=== PATIENT | male | born 1965 | race Caucasian/White ===

== ENCOUNTER 2016-10-13 23:06 | Observation (INO) | payer OTHER ==
[2016-10-13 23:31] LABS: ABSOLUTE BASOPHILS # (AUTO) 0.1 10^3/uL (0.0-0.2); ABSOLUTE EOSINOPHILS # (AUTO) 0.5 10^3/uL (0.0-0.6); ABSOLUTE LYMPHOCYTES (AUTO) 2.6 10^3/uL (0.5-4.7); ABSOLUTE MONOCYTES (AUTO) 0.7 10^3/uL (0.1-1.4); ABSOLUTE NEUT (AUTO) 3.8 10^3/uL (1.7-8.2); BASOPHILS % (AUTO) 0.7 % (0-2); EOSINOPHILS % (AUTO) 6.1 % (0-6); HEMATOCRIT 46.1 % (37.9-51.0); HEMOGLOBIN 15.7 g/dL (13.5-17.0); LYMPHOCYTES % (AUTO) 34.3 % (13-45); MEAN CORPUSCULAR HEMOGLOBIN 30.1 pg (27.0-33.4); MEAN CORPUSCULAR VOLUME 88 fl (80-97); MONOCYTES % (AUTO) 8.9 % (3-13); RED BLOOD COUNT 5.22 10^6/uL (4.35-5.55); RED CELL DISTRIBUTION WIDTH 12.9 % (11.5-14.0); WHITE BLOOD COUNT 7.7 10^3/uL (4.0-10.5)
[2016-10-13 23:49] LABS: PROTHROMBIN TIME 12.4 SEC (11.4-15.4)
[2016-10-13] MEDS ORDERED: ASPIRIN 81 MG TABLET, CHEWABLE PO ONE (23:49)
[2016-10-13 23:50] LABS: PARTIAL THROMBOPLASTIN TIME 29.6 SEC (23.5-35.8)
[2016-10-13 23:53] LABS: ALANINE AMINOTRANSFERASE 58 U/L (21-72); ALBUMIN 4.5 g/dL (3.5-5.0); ALKALINE PHOSPHATASE 148 U/L (38-126); ANION GAP 12 (5-19); ASPARTATE AMINO TRANSFERASE 43 U/L (17-59); BILIRUBIN,TOTAL 0.6 mg/dL (0.2-1.3); BLOOD UREA NITROGEN 15 mg/dL (7-20); CALCIUM 10.4 mg/dL (8.4-10.2); CARBON DIOXIDE 26 mmol/L (22-30); CHLORIDE 105 mmol/L (98-107); CREATINE KINASE 65 U/L (55-170); CREATININE RESULT 1.12 mg/dL (0.52-1.25); GLUCOSE 95 mg/dL (75-110); POTASSIUM 4.1 mmol/L (3.6-5.0); SODIUM 143.4 mmol/L (137-145); TOTAL PROTEIN 7.7 g/dL (6.3-8.2)
[2016-10-14 00:05] LABS: CREATINE KINASE MB 0.86 ng/mL (<4.55)
[2016-10-14 00:07] LABS: TROPONIN I < 0.012 ng/mL
[2016-10-14] MEDS ORDERED: DOCUSATE SODIUM 100 MG CAPSULE PO PRN (00:47)
[2016-10-14] MEDS ORDERED: ACETAMINOPHEN 325 MG TABLET PO PRN (00:47)
--- NOTE | 2016-10-14 00:52 | ER Document Report ---
ED General - General Chief Complaint: S/S of Possible Stroke Stated Complaint: STROKE LIKE SYMPTOMS Notes: Patient is a 51-year-old male without past history who presents with acute onset of left-sided weakness and expressive aphasia. His states that she woke up from sleep and noticed that the patient appeared to be staring off into space and would not move the left side of his body. The patient was last seen normal at 9 PM by his son and was noted to be acting completely normally at that time, walking without difficulty. EMS reports the patient's symptoms gradually improved throughout his transit time. He initially had no strength in the left upper lower extremity with complete specificity and had severe expressive aphasia. The nail throughout transportation he and speak more clearly and spontaneously move his left side of his body and begin to perform commands on that side. Nothing was noted to improve or directly worsen the patient's symptoms. He denies medication changes. No history of similar symptoms in the past. He has not spoken to his primary care physician regarding today's concerns. TRAVEL OUTSIDE OF THE [place] IN LAST 30 DAYS: No - Related Data Allergies/Adverse Reactions: No Known Allergies Allergy (Verified 12/11/14 09:48) Home Medications: Current Home Medications Temazepam [Restoril] 30 mg PO QPM 10/14/16 [History] Past Medical History - General Information source: Patient, Emergency Med Personnel - Social History Smoking Status: Never Smoker Frequency of alcohol use: Social Drug Abuse: None Lives with: Spouse/Significant other Family History: Reviewed & Not Pertinent Neurological Medical History: Reports: Hx Migraine Musculoskeltal Medical History: Reports Hx Gout Past Surgical History: Reports: Hx Appendectomy - Immunizations Hx Diphtheria, Pertussis, Tetanus Vaccination: Yes Review of Systems - Review of Systems Notes: Constitutional: Negative for fever. HENT: Negative for sore throat. Eyes: Negative for visual changes. Cardiovascular: Negative for chest pain. Respiratory: Negative for shortness of breath. Gastrointestinal: Negative for abdominal pain, vomiting or diarrhea. Genitourinary: Negative for dysuria. Musculoskeletal: Negative for back pain. Skin: Negative for rash. Neurological: Negative for headaches, positive for left-sided weakness and numbness. Positive for aphasia 10 point ROS negative except as marked above and in HPI. Physical Exam - Vital signs Vitals: Pulse Ox 100 10/13/16 23:14 Interpretation: Normal Notes: PHYSICAL EXAMINATION: GENERAL: Appears somewhat confused but in no acute distress HEAD: Atraumatic, normocephalic. EYES: Pupils equal round and reactive to light, extraocular movements intact, sclera anicteric, conjunctiva are normal. ENT: nares patent, oropharynx clear without exudates. Moist mucous membranes. NECK: Normal range of motion, supple without lymphadenopathy LUNGS: Breath sounds clear to auscultation bilaterally and equal. No wheezes rales or rhonchi. HEART: Regular rate and rhythm without murmurs ABDOMEN: Soft, nontender, normoactive bowel sounds. No guarding, no rebound. No masses appreciated. EXTREMITIES: Normal range of motion, no pitting or edema. No cyanosis. NEUROLOGICAL: Initial neurologic assessment shows 5 out of 5 strength both distally and proximally in the right upper and lower extremities. Face is symmetric. Tongue protrudes midline. Pupils are 3 mm equally reactive. Patient is slow to respond to questioning. Mild expressive aphasia. No receptive aphasia. He has 4 minus out of 5 strength both distally and proximally in the left upper and lower extremity. Finger to nose normal bilaterally. [id number] normal bilaterally. Gait deferred PSYCH: Slow to respond to questioning SKIN: Warm, Dry, normal turgor, no rashes or lesions noted. Course - Re-evaluation Re-evalutation: 2304-patient arrived by EMS. Initial bedside assessment shows mild expressive aphasia, failure initial disorientation questions, and 4 minus strength of the left upper and lower extremities both distally and proximally. 5 out of 5 strength in the right upper and lower extremity both distally and proximally. No facial asymmetry. Patient is slow to speak. Patient will direct to CT at this time 0-CT without acute intracranial bleed. Patient's neuro exam at this time continues clinically improved. He now has 4 out of 5 strength both distally and proximally in the left upper and lower extremities. He is still slightly aphasic with expression but his speech is becoming more quick and clear. He now gets the year. Remainder of the physical exam unremarkable. Clinical presentation at this time is most consistent with a transient ischemic attack given his rapid clinical improvement. 0040-Patient's left upper and lower extremity strength is now normalized, 5 out of 5 both distally and proximally. He is not joking with his family although his speech is still somewhat delayed. He will be admitted to the hospitalist at this time was accepted for admission. - Vital Signs Vital signs: Temp Pulse Resp BP Pulse Ox 97.6 F 77 22 H 125/92 H 100 10/13/16 23:17 10/13/16 23:20 10/14/16 00:01 10/14/16 00:01 10/14/16 00:01 - Laboratory Result Diagrams: 10/13/16 23:23 10/13/16 23:23 Laboratory results interpreted by me: 10/13/16 10/13/16 23:23 23:23 Eosinophils % 6.1 H Calcium 10.4 H Alkaline Phosphatase 148 H - Diagnostic Test Radiology reviewed: Image reviewed, Reports reviewed Radiology results interpreted by me: 10/14/16 00:47 CT head: No acute intracranial bleed - EKG Interpretation by Me Additional EKG results interpreted by me: 10/14/16 00:52 Normal sinus rhythm. Rate 67. No ST elevations or depressions. QTC 423. Critical Care Note - Critical Care Note Total time excluding time spent on procedures (mins): 35 Comments: Critical care time spent obtaining history from patient or surrogate, discussions with consultants, development of treatment plan with patient or surrogate, evaluation of patient's response to treatment, examination of patient , ordering and performing treatments and interventions, ordering and review of laboratory studies, re-evaluation of patient's condition, ordering and review of radiographic studies and review of old charts Discharge - Discharge Clinical Impression: Expressive aphasia TIA (transient ischemic attack) Qualifiers: Transient cerebral ischemia type: unspecified Qualified Code(s): G45.9 - Transient cerebral ischemic attack, unspecified Condition: Fair Disposition: ADMITTED OBSERVATION Admitting Provider: Hospitalist [facility] Unit Admitted: Telemetry
[2016-10-14 00:59] LABS: CHOLESTEROL 229.52 mg/dL (0-200); Direct HDL 58 mg/dL (>40); TRIGLYCERIDES 215 mg/dL (<150)
[2016-10-14 01:09] LABS: DIRECT LDL 151 mg/dL (<100)
[2016-10-14] MEDS ORDERED: FOLIC ACID 1 MG TABLET PO ONE (02:45)
[2016-10-14] MEDS ORDERED: THIAMINE HCL 100 MG TABLET PO ONE (03:00)
[2016-10-14] MEDS ORDERED: INFLUENZA ADLT QUAD (36MOS+) 2016-17 VAC 0.5 ML SYR IM PRN (03:24)
--- NOTE | 2016-10-14 05:03 | PDOC H&P ---
History of Present Illness Admission Date/PCP: 10/14/16 00:47 Patient complains of: Slurred speech and left-sided weakness History of Present Illness: ALYCIA CERDA is a 51 year old male with a past medical history of gout, insomnia and alcohol dependence who had been in his usual state of health until noted by his to have slurred speech and acting differently after retiring to bed. Patient had no specific complaints but was found to be giddy but possibly weak on the left side. Patient is return to baseline in the emergency room with exception to giddiness where he admits to excessive stress and taking at least one extra 30 mg dose of temazepam in addition to several alcoholic beverages prior to the episode. Patient's is at bedside who verifies the above. Past Medical History Neurological Medical History: Reports: Migraine Musculoskeltal Medical History: Reports: Gout Psychiatric Medical History: Denies: Depression Past Surgical History Past Surgical History: Reports: Appendectomy Social History Lives with: Spouse/Significant other Smoking Status: Current Some Day Smoker Cigars Per Day: 1 Hx Recreational Drug Use: No Drugs: None - Advance Directive Resuscitation Status: Full Code Family History Family History: Hypertension. denies: CVA Parental Family History Reviewed: Yes Children Family History Reviewed: Yes Sibling(s) Family History Reviewed.: Yes Medication/Allergy Home Medications: Temazepam [Restoril] 30 mg PO QPM 10/14/16 Allergies/Adverse Reactions: No Known Allergies Allergy (Verified 12/11/14 09:48) Review of Systems Constitutional: ABSENT: chills, fever(s), headache(s), weight gain, weight loss Eyes: ABSENT: visual disturbances Ears: ABSENT: hearing changes Cardiovascular: ABSENT: chest pain, dyspnea on exertion, edema, orthropnea, palpitations Respiratory: ABSENT: cough, hemoptysis Gastrointestinal: ABSENT: abdominal pain, constipation, diarrhea, hematemesis, hematochezia, nausea, vomiting Genitourinary: ABSENT: dysuria, hematuria Musculoskeletal: ABSENT: joint swelling Integumentary: ABSENT: rash, wounds Neurological: ABSENT: abnormal gait, abnormal speech, confusion, dizziness, focal weakness, syncope Psychiatric: ABSENT: anxiety, depression, homidical ideation, suicidal ideation Endocrine: ABSENT: cold intolerance, heat intolerance, polydipsia, polyuria Hematologic/Lymphatic: ABSENT: easy bleeding, easy bruising Physical Exam Vital Signs: Temp Pulse Resp BP Pulse Ox 97.6 F 65 20 123/80 100 10/14/16 02:42 10/14/16 04:00 10/14/16 04:00 10/14/16 04:00 10/14/16 04:00 Intake & Output 10/12/16 10/13/16 10/14/16 11:59 11:59 11:59 Weight 84 kg General appearance: PRESENT: no acute distress, well-developed, well-nourished Head exam: PRESENT: atraumatic, normocephalic Eye exam: PRESENT: conjunctiva pink, EOMI, PERRLA. ABSENT: scleral icterus Ear exam: PRESENT: normal external ear exam Mouth exam: PRESENT: moist, tongue midline Neck exam: ABSENT: carotid bruit, JVD, lymphadenopathy, thyromegaly Respiratory exam: PRESENT: clear to auscultation fernando. ABSENT: rales, rhonchi, wheezes Cardiovascular exam: PRESENT: RRR. ABSENT: diastolic murmur, rubs, systolic murmur Pulses: PRESENT: normal dorsalis pedis pul Vascular exam: PRESENT: normal capillary refill GI/Abdominal exam: PRESENT: normal bowel sounds, soft. ABSENT: distended, guarding, mass, organolmegaly, rebound, tenderness Rectal exam: PRESENT: deferred Extremities exam: PRESENT: full ROM. ABSENT: calf tenderness, clubbing, pedal edema Neurological exam: PRESENT: alert, awake, oriented to person, oriented to place , oriented to time, oriented to situation, CN II-XII grossly intact. ABSENT: motor sensory deficit Psychiatric exam: PRESENT: appropriate affect, normal mood. ABSENT: homicidal ideation, suicidal ideation Skin exam: PRESENT: dry, intact, warm. ABSENT: cyanosis, rash Results Impressions: Chest X-Ray 10/13/16 23:13 IMPRESSION: NO SIGNIFICANT RADIOGRAPHIC FINDING IN THE CHEST. Head CT 10/13/16 23:13 IMPRESSION: No acute intracranial abnormality. Pertinent positive or negative findings of the imaging study reported as a CRITICAL EXAM to THE ER charge nurse at23:21 on 10/13/2016. Category of Critical Exam: Stroke alert Assessment & Plan - Diagnosis (1) TIA (transient ischemic attack) Qualifiers: Transient cerebral ischemia type: unspecified Qualified Code(s): G45.9 - Transient cerebral ischemic attack, unspecified Is this a current diagnosis for this admission?: YesPlan: Given history of present illness and lack of risk factors a treat TIA is felt to be highly improbable, TIA workup is discontinued (2) Anxiety Is this a current diagnosis for this admission?: YesPlan: Recommended follow-up mental health as an outpatient (3) Alcohol dependence Is this a current diagnosis for this admission?: YesPlan: Ordered thiamine folate when necessary Ativan strongly recommended to reduce alcohol intake by half over the next week and follow-up with primary care (4) Benzodiazepine causing adverse effect in therapeutic use Is this a current diagnosis for this admission?: YesPlan: Patient's intentions appear to be sedative patient strongly advised to discontinue misuse and follow-up with primary care - Time Time Spent: 30 to 50 Minutes
[2016-10-14] MEDS: HEPARIN SOD (PORCINE) 5,000 UNIT/ML 1 ML SYRINGE SUBCUT SCH ×2 (06:33→13:08)
--- NOTE | 2016-10-14 08:25 | EKG REPORT ---
SEVERITY:- NORMAL ECG - SINUS RHYTHM : Confirmed by: Ulises Douglas 14-Oct-2016 08:24:10
[2016-10-14] MEDS ORDERED: FOLIC ACID 1 MG TABLET PO SCH (10:00)
[2016-10-14] MEDS ORDERED: ASPIRIN 325 MG TABLET, ENT COATED PO SCH (10:00)
[2016-10-14] MEDS ORDERED: THIAMINE HCL 100 MG TABLET PO SCH (10:00)
--- NOTE | 2016-10-14 14:21 | PDOC DISCHARGE SUMMARY ---
General - Admit/Disc Date/PCP Admission Date/Primary Care Provider: 10/14/16 00:47 Discharge Date: 10/14/16 - Discharge Diagnosis (1) TIA (transient ischemic attack) Is this a current diagnosis for this admission?: YesSummary: Patient problem slurred speech and some generalized weakness. It's not clear whether this was truly a TIA versus interaction of sleeping medication with alcohol. (2) Anxiety Is this a current diagnosis for this admission?: Yes - Additional Information Resuscitation Status: Full Code Discharge Diet: Cardiac Discharge Activity: Activity As Tolerated Home Medications: Allopurinol 100 mg PO DAILY 10/14/16 Aspirin [Ecotrin 325 mg EC Tablet] 81 mg PO DAILY tabec 10/14/16 Atorvastatin Calcium [Lipitor 80 mg Tablet] 40 mg PO QHS #30 tablet 10/14/16 Temazepam [Restoril] 30 mg PO QPM 10/14/16 History of Present Illness History of Present Illness: ALYCIA CERDA is a 51 year old male presented with some altered mental status and some questionable left-sided weakness. The patient had drink 4 beers earlier in the evening and then had trouble falling asleep so he took a temazepam. Patient later then had problems with feeling weak and some confusion. There was some question of whether he had weakness on his left side. There was concern this would may represent a transient ischemic attack and he is admitted for further evaluation. Hospital Course Hospital Course: 51-year-old gentleman who presented with some altered mental status and some possible left-sided weakness. It was unclear whether this was secondary to medication interaction of alcohol plus temazepam versus a TIA. The patient has had resolution of his symptoms of time my exam. The patient had a carotid Doppler which shows no significant stenosis and an MRI which shows no abnormalities. The patient is instructed to take aspirin 81 mg daily along with Lipitor for the possibility of this being a TIA. Patient is instructed not to mix alcohol and benzodiazepines again. Physical Exam Vital Signs: Temp Pulse Resp BP Pulse Ox 98.0 F 70 12 118/80 97 10/14/16 11:40 10/14/16 11:40 10/14/16 11:40 10/14/16 11:40 10/14/16 11:40 Intake & Output 10/13/16 10/14/16 10/15/16 06:59 06:59 06:59 Intake Total 5 480 Output Total 300 Balance -295 480 Weight 84 kg General appearance: PRESENT: no acute distress Eye exam: PRESENT: conjunctiva pink Mouth exam: PRESENT: moist, tongue midline Neck exam: ABSENT: JVD Respiratory exam: PRESENT: clear to auscultation fernando. ABSENT: rales, rhonchi, wheezes Cardiovascular exam: PRESENT: RRR. ABSENT: diastolic murmur, rubs, systolic murmur GI/Abdominal exam: PRESENT: normal bowel sounds, soft. ABSENT: distended, guarding, mass, organolmegaly, rebound, tenderness Extremities exam: ABSENT: calf tenderness, clubbing, pedal edema Neurological exam: PRESENT: alert, awake, oriented to person, oriented to place , oriented to time, oriented to situation, CN II-XII grossly intact. ABSENT: motor sensory deficit Psychiatric exam: PRESENT: appropriate affect Skin exam: PRESENT: dry, intact, warm. ABSENT: cyanosis, rash Results Impressions: Chest X-Ray 10/13/16 23:13 IMPRESSION: NO SIGNIFICANT RADIOGRAPHIC FINDING IN THE CHEST. Head CT 10/13/16 23:13 IMPRESSION: No acute intracranial abnormality. Pertinent positive or negative findings of the imaging study reported as a CRITICAL EXAM to THE ER charge nurse at23:21 on 10/13/2016. Category of Critical Exam: Stroke alert Carotid Doppler Study 10/14/16 09:15 IMPRESSION: NO HEMODYNAMICALLY SIGNIFICANT STENOSIS. Head MRI 10/14/16 09:15 IMPRESSION: 1. No acute intracranial abnormality. Specifically, normal ferrell- white matter differentiation without evidence of cerebral edema or recent CVA. Qualifiers PATEINT BEING DISCHARGED WITH ANY OF THE FOLLOWING DIAGNOSIS?: Stroke Stroke Pt being discharged on Anti-thrombolytic therapy?: Yes Stroke Pt being discharged on Anti-coagulation therapy?: No Reason(s) for not prescribing Anti-coagulation therapy:: Procedure Contraindicated Stroke Pt being discharged on Statins?: Yes Plan Discharge Plan: Discharged home in stable condition. Time Spent: Less than 30 Minutes
[2016-10-14 14:59] VITALS: BP 118/80
[2016-10-14] MEDS ORDERED: ATORVASTATIN CALCIUM 80 MG TABLET PO SCH (22:00)
[2016-10-16 15:12] LABS: URINE BARBITURATES SCREEN NEGATIVE; URINE METHADONE SCREEN NEGATIVE; URINE PHENCYCLIDINE SCREEN NEGATIVE
== END 2016-10-14 14:49 | disposition home or self-care (01) ==
LOC: ER 23:06 → EH 10-14 00:47 → UNDOADMOB 10-14 01:00 → 3S 10-14 02:36
PROVIDERS: ADMIT Internal Medicine; ATTEND Internal Medicine
DX: R47.81 Slurred speech (principal); R53.1 Weakness; T42.4X5A Adverse effect of benzodiazepines, initial encounter; Y92.9 Unspecified place or not applicable; F41.9 Anxiety disorder, unspecified; F10.20 Alcohol dependence, uncomplicated; M10.9 Gout, unspecified; G47.00 Insomnia, unspecified; F17.210 Nicotine dependence, cigarettes, uncomplicated; Z82.49 Family history of ischemic heart disease and other diseases of the circulatory system
CPT/HCPCS: 93005; 99291; 36415 ×2; 82553; 82962; 82550; 84443; 85025; 85610; 85730; 80053; 84484; 80307; 80061; 93880; 70551; 71010; 70450; 93010; G0378 ×2; J1644; J3490